=== PATIENT | male | born 1995 | race Caucasian/White ===

== ENCOUNTER 2019-07-04 15:02 | Emergency (ER) | payer OTHER ==
[~2019-07-04] VITALS: Ht 175 cm; Wt 82.0 kg
[2019-07-04] MEDS ORDERED: AMOX-358 PO (15:48)
--- NOTE | 2019-07-04 15:49 | ED Lower Extremity ---
General Chief Complaint: Foreign Body Stated Complaint: NAIL IN L FOOT Nursing Triage Note: pt presents to ed with complaints of l big toe pain after accidently shooting self in the foot with nail gun. Nursing Sepsis Screen: No Definite Risk History of Present Illness Date Seen by Provider: Jul 04, 2019 Time Seen by Provider: 15:35 Initial Comments 24 year old male presents with ring shank nail through his boot from top to bottom, end of nail coming through the sole of his boot. He was at work, this happened approximately 45 min ago with a nail gun. He had a tetanus shot 2 years ago. Pain/Injury Location: left 1st toe Method of Injury: other (nail gun) Allergies and Home Medications Allergies Coded Allergies: No Known Drug Allergies (Unverified , 07/04/19) Home Medications Amoxicillin/Potassium Clav 1 Each Tablet, 1 EACH PO BID Prescribed by: ANITA ROBERTS on 07/04/19 1548 Patient Home Medication List Home Medication List Reviewed: Yes Review of Systems Constitutional: no symptoms reported, see HPI Skin: see HPI, other (foreign body left foot, great toe, with boot on. ) All Other Systems Reviewed Negative Unless Noted: Yes Past Ctnctxv-Rhcxgh-Gabqff Hx Past Med/Social Hx: Reviewed Nursing Past Med/Soc Hx Patient Social History Alcohol Use: Denies Use Recreational Drug Use: Yes Drug of Choice: reports past hx Smoking Status: Current Everyday Smoker Type Used: Cigarettes Recent Foreign Travel: No Contact w/Someone Who Travel: No Recent Infectious Disease Expo: No Recent Hopitalizations: No Physical Abuse: No Sexual Abuse: No Mistreated: No Fear: No Immunizations Up To Date Tetanus Booster (TDap): Less than 5yrs Seasonal Allergies Seasonal Allergies: No Past Medical History Surgeries: Yes (tubes in ears) Respiratory: No Cardiac: No Neurological: No Genitourinary: No Gastrointestinal: No Musculoskeletal: No Endocrine: No HEENT: No Cancer: No Psychosocial: No Blood Disorders: No Physical Exam Vital Signs Vital Signs - First Documented 07/04/19 15:32 Temp 37.0 Pulse 104 Resp 18 B/P (MAP) 126/92 (103) Pulse Ox 98 Capillary Refill : Less Than 3 Seconds Height, Weight, BMI Height: '" Weight: lbs. oz. kg; 26.00 BMI Method: General Appearance: WD/WN, no apparent distress Cardiovascular: normal peripheral pulses, regular rate, rhythm Respiratory: chest non-tender, lungs clear, normal breath sounds Feet: left foot abrasions/lacerations (great toe) Neurologic/Psychiatric: no motor/sensory deficits, alert, normal mood/affect, oriented x 3 Skin: normal color, warm/dry Procedures/Interventions I&D : Site: left great toe Progress Patient refused pain medication or sedation. The top of the leather boot was cut back slightly, needle nose pliers grasped the nail head, the patient was tolerating pain and the procedure. The nails was gently removed, intact. The boot was then removed. Incision to medial aspect of soft tissue along nail boarder. Patient had full ROM and resisted flex/ext to great toe. Wound irrigated with 500 mils of sterile saline with Hibiclens. Bulky sterile dressing applied patient tolerated procedure well. Progress/Results/Core Measures Results/Orders My Orders Orders - ANITA ROBERTS Foot, Left, 3 Views (07/04/19 15:22) Tramadol Tablet (Ultram Tablet) (07/04/19 15:40) Tramadol Tablet (Ultram Tablet) (07/04/19 16:00) Medications Given in ED Current Medications Medications Dose Ordered Sig/Kayden Route Start Time Stop Time Status Last Admin Dose Admin Tramadol HCl 50 mg ONCE ONCE PO 07/04/19 16:00 07/04/19 15:54 DC 07/04/19 15:53 50 MG Vital Signs/I&O 07/04/19 07/04/19 15:32 15:54 Temp 37.0 Pulse 104 99 Resp 18 18 B/P (MAP) 126/92 (103) 130/87 Pulse Ox 98 98 Blood Pressure Mean: 103 Diagnostic Imaging Diagonstic Imaging: Xray Plain Films/CT/US/NM/MRI: other (left foot) Comments NAME: [facility] REC#: [id number] PT STATUS: REG ER : 1995 PHYSICIAN: ANITA ROBERTS ADMIT DATE: 07/04/19/ER Draft Date of Exam:07/04/19 FOOT, LEFT, 3 VIEWS INDICATION: Nail through the foot. COMPARISON: None FINDINGS: 3 radiographic views of the left foot were obtained. Metal nail is seen extending through the distal great toe. There is some obliquity to the AP image, but the nail does appear to extend through the osseous portion of the distal phalanx. Joint spaces are maintained. No other acute osseous abnormalities are seen. IMPRESSION: 1. Radiopaque nail extending through the distal phalanx of the great toe. Dictated on workstation # [id number] Dict: 07/04/19 1543 Trans: 07/04/19 1548 CVB [id number] Interpreted by: GLORIA REID MD Electronically signed by: Reviewed: Reviewed by Me (nail appears in soft tissue and not through phalynx. ) Departure Impression Primary Impression: Foreign body in left foot Qualified Codes: S90.852A - Superficial foreign body, left foot, initial encounter Disposition: HOME, SELF-CARE Condition: Improved Departure-Patient Inst. Decision time for Depature: 15:40 Referrals: NO,LOCAL PHYSICIAN (PCP/Family) Primary Care Physician Patient Instructions: Foreign Body in Skin (DC) Add. Discharge Instructions: Alternate Tylenol 650 mg and ibuprofen 600 mg every 4 hours or pain or swelling. Take antibiotic as prescribed. Clean the left great toe with peroxide and apply triple antibiotic ointment 3 times daily. Watch for signs of infection: Redness, swelling, discolored drainage, fever greater than 101 Ice and elevate left foot for 20 minutes every 4 hours. All discharge instructions reviewed with patient and/or family. Voiced understanding. Scripts Amoxicillin/Potassium Clav (Augmentin 875-125 Tablet) 1 Each Tablet 1 EACH PO BID, #20 TAB 0 Refills Prov: ANITA ROBERTS 07/04/19 Work/School Note: Work Release Form Date Seen in the Emergency Department: Jul 04, 2019 Return to Work: Jul 05, 2019 Restrictions: No Restrictions Other Restrictions Listed Below: Air to left foot 10 min every 4 hours and elevate ALEJANDRAANITA Jul 04, 2019 15:49
[2019-07-04 15:54] VITALS: BP 130/87
== END 2019-07-04 15:54 | disposition home or self-care (01) ==
LOC: ER 15:04 → EDSEX 15:04 → ER 15:54
DX: S90.852A Superficial foreign body, left foot, initial encounter (principal); W29.4XXA Contact with nail gun, initial encounter; F17.210 Nicotine dependence, cigarettes, uncomplicated
CPT/HCPCS: 73630